=== PATIENT | female | born 1985 | race African-American/Black ===

== ENCOUNTER 2020-06-20 19:50 | Emergency (ER) | payer MEDICAID ==
[~2020-06-20] VITALS: Ht 175.3 cm; Wt 68.2 kg
[~2020-06-20 19:50] MED LIST: NOCURR
[2020-06-20] MEDS ORDERED: PREN-155 PO (20:07)
[2020-06-20 21:00] LABS: BASOPHILS % (AUTO) 0.3 % (0.0-2.0); EOSINOPHILS % (AUTO) 0.4 % (1.0-6.0); HEMATOCRIT 30.4 % (36-46); HEMOGLOBIN 10.2 g/dL (12.0-16.0); LYMPHOCYTES % (AUTO) 35.4 % (22.0-44.0); MEAN CORPUSCULAR HGB CONC 33.7 G/dL (31.0-37.0); MEAN CORPUSCULAR VOLUME 83 fL (80-100); MONOCYTES % (AUTO) 6.5 % (2.0-9.0); NEUTROPHILS % (AUTO) 57.4 % (40.0-70.0); PLATELET COUNT (AUTO) 224 K/uL (150-450); RED BLOOD CELL COUNT(AUTO) 3.65 MIL/uL (4.00-5.20); RED CELL DISTRIBUTION WIDTH 14.8 % (11.5-14.5)
[2020-06-20 21:01] LABS: LYMPHOCYTES # (AUTO) 2.5 K/uL (1.0-4.8); MONOCYTES # (AUTO) 0.5 K/uL (0.1-1.0); NEUTROPHILS # (AUTO) 4.1 K/uL (1.8-7.7)
[2020-06-20] MEDS ORDERED: ACETAMINOPHEN 500 MG TABLET PO ONE (21:30)
[2020-06-20 23:52] VITALS: BP 135/78
== END 2020-06-20 23:53 | disposition home or self-care (01) ==
LOC: EMS 19:54
DX: O03.4 Incomplete spontaneous abortion without complication (principal); Z3A.09 9 weeks gestation of pregnancy
CPT/HCPCS: 76801; 76817; 86901